=== PATIENT | female | born 1955 | race Caucasian/White ===

== ENCOUNTER 2024-07-29 21:17 | Inpatient (IN) | payer MEDICARE, SELFPAY ==
[2024-07-29] VITALS (13 sets, daily range): BP systolic 135–162; BP diastolic 66–89; BMI 29.1
[2024-07-29 15:18] LABS: % Basophils 0.2 % (0-2); % Immature Granulocytes 0.2 % (0-0.5); % Monocytes 7.2 % (1.7-9.3); % Neutrophils 86.4 % (42.2-75.2); Absolute Lymphocytes 0.8 10^3/uL (1.2-3.4); Absolute Neutrophils 11.5 10^3/uL (1.4-6.5); Hematocrit 51.4 % (37.0-47.0); Hemoglobin 17.4 g/dL (12.0-16.0); Mean Corp Hgb Conc. 33.9 g/dL (33.0-37.0); Mean Corpuscular Hgb 27.8 pg (27.0-31.0); Mean Corpuscular Volume 82.2 fL (81.0-99.0); Mean Platelet Volume 9.1 fL (7.4-10.4); Nucleated Red Blood Cells % 0 %; Platelet Count 340 10^3/uL (130-400); Red Blood Cell Count 6.25 10^6/uL (4.20-5.40); Red Cell Dist. Width 14.4 % (11.5-14.5); White Blood Cell Count 13.3 10^3/uL (4.8-10.8)
[2024-07-29 15:32] LABS: ALT (SGPT) 28 U/L (0-35); AST (SGOT) 25 U/L (14-36); Alkaline Phosphatase 111 U/L (38-126); Blood Urea Nitrogen 37 mg/dl (7-17); Calcium 10.8 mg/dl (8.4-10.2); Carbon Dioxide 19 mmol/L (22-30); Chloride 105 mmol/L (98-107); Glucose 156 mg/dl (70-99); Lipase 92 U/L (23-300); Potassium 4.6 mmol/L (3.5-5.1); Sodium 143 mmol/L (135-145); Total Bilirubin 0.9 mg/dl (0.2-1.3); Total Protein 7.8 g/dl (6.3-8.2); eGFR > 60.00
--- NOTE | 2024-07-29 17:15 | ED.GENMED ---
History of Present Illness
General
Chief Complaint: Abdominal Symptoms
Source: patient
Exam Limitations: none
Time Seen by Provider: 07/29/24 17:10
History of Present Illness
History of Present Illness:
See MDM
Past History
Past History
ED Past Medical History: None
ED Past Surgical History: None
Social History
Tobacco: Non-smoker
Alcohol: None
Phy Exam
Physical Exam
Physical Exam:
See MDM
Course
Orders/Labs/Results
Orders:
Orders
07/29/24 14:48
CMP [Comprehensive Metabolic Panel] Urgent
Complete Blood Count/With Diff Urgent
Lipase Urgent
07/29/24 17:14
CT Abd/pelvis W Iv Cont Urgent
Comment:
Reason For Exam: generalized abd pain, N/V
Abnormal Lab Results
07/29/24
14:48
WBC 13.3 H 10^3/uL
(4.8-10.8)
RBC 6.25 H 10^6/uL
(4.20-5.40)
Hgb 17.4 H g/dL
(12.0-16.0)
Hct 51.4 H %
(37.0-47.0)
Absolute Neuts (auto) 11.5 H 10^3/uL
(1.4-6.5)
Absolute Lymphs (auto) 0.8 L 10^3/uL
(1.2-3.4)
Absolute Monos (auto) 1.0 H 10^3/uL
(0.1-0.6)
Neutrophils % 86.4 H %
(42.2-75.2)
Lymphocytes % 6.0 L %
(20.5-51.1)
Carbon Dioxide 19 L mmol/L
(22-30)
BUN 37 H mg/dl
(7-17)
Glucose 156 H mg/dl
(70-99)
Calcium 10.8 H mg/dl
(8.4-10.2)
07/29/24 14:48
07/29/24 14:48
Vital Signs
Initial and Last Documented VS:
Initial Vital Signs
Temp Pulse Resp BP Pulse Ox
97.9 F 91 16 139/89 98
07/29/24 14:37 07/29/24 14:37 07/29/24 14:37 07/29/24 14:37 07/29/24 14:37
Last Documented Vital Signs
Temp Pulse Resp BP Pulse Ox
97.9 F 73 16 135/81 97
07/29/24 14:37 07/29/24 18:45 07/29/24 18:45 07/29/24 18:30 07/29/24 18:45
MDM/Problems Addressed
Differential Diagnosis Includes:
HPI and MDM Narrative:
69-year-old female presenting with nausea, vomiting and abdominal pain. Patient states she has been nauseous since Tuesday. She has been unable to keep any food down since then. She denies any recent sick contacts. Patient believes that she has
the 'stomach flu' but was concerned given duration of symptoms. I entered the room, blood work was already started and patient was placed on IV fluids. Patient states she is feeling somewhat better but still uncomfortable. Given the duration of
symptoms, will obtain CT abdomen/pelvis
Physical exam
General: Well appearing and non-toxic
HEENT: protecting airway. Dry mucous membranes
Neck: appears supple
CV: No evidence of cyanosis
Resp: No accessory muscle use
Abd: Non-distended. Vague abdominal tenderness without localized rebound
Extremities: No deformities
Neuro: alert
Psych: Normal affect
Skin: Intact
Problems Addressed including Acute and Chronic Conditions affecting care:
1. Abdominal pain with nausea and vomiting
Acuity: acute
Prognosis: stable
Details: Symptoms appear to be somewhat improved with fluids. Given duration of symptoms, will obtain CT abdomen/pelvis
2. [ ]
Acuity: acute
Prognosis: stable
Details:
3. [ ]
Acuity: acute
Prognosis: stable
Details:
4. [ ]
Acuity: acute
Prognosis: stable
Details:
5. [ ]
Acuity:
Prognosis:
Details:
Updates
7 PM radiology called indicating concern for partial small bowel obstruction which could be related to a small bowel mass or foreign body. Patient denies eating anything abnormal. Will admit for further workup
Differential Diagnosis (but not limited to): Gastroenteritis, gastritis, peptic ulcer disease, colitis
Testing considered: EKG but symptoms are nonexertional
Drug therapy (if applicable): OTC meds, please see d/c instruction regarding Rx drugs
Amount and/or Complexity of Data Reviewed
Clinical info obtained from: Patient
External data reviewed: N/A
Labs I independently reviewed (but not limited to): Mild leukocytosis, elevated BUN
Radiology: The CT scan was personally and independently reviewed. In addition, official CT report reviewed.
Pulse Ox: not hypoxic
EKG independently reviewed: N/A
Shank Archer: N/A
Critical Care: N/A
Risk of Complication:
Social Determinants of health: Good social support
Discussed with other providers: Radiologist, hospitalist
Escalation of Care includes Admit/Obs: Given the concern for partial small bowel obstruction and possible mass, will admit
Occasional wrong word or 'sound a like' substitutions may have occurred due to the inherent limitations of voice recognition software. Read the chart carefully and recognize, using context, where substitutions have occurred.
*Critical Care Note
Total Time (30-74mins, 75-104mins- exclusive of procedures): Not Applicable
ED Attending Note
-
Portions of this chart may have been created with voice recognition software.� Occasional wrong word or��sound alike� substitutions may have occurred due to the inherent limitations of voice recognition software.
Discharge Plan
Departure
Patient Disposition: Admit
Date of Disposition: 07/29/24
Time of Disposition: 19:13
Admit to: Med/Surg
Presentation/result/management discussed w/ accepting MD/DO: Hospitalist
Discharge Problem:
Partial small bowel obstruction
Referrals:
MCKENNA SALAMANCA [Other]
Interventions
Interventions:
*Risk Screen - Suicide Last Done: 07/29/24 16:40
*General Assessment Last Done: 07/29/24 16:40
*Neglect/Abuse Screening Last Done: 07/29/24 16:40
ED- Fall Risk Assessment Last Done: 07/29/24 16:40
UI-Jnpprk-Rzgdmawcyg Assessment Last Done: 07/29/24 16:40
Discharge Date and Time
Print Language: UPPER SORBIAN
--- NOTE | 2024-07-29 20:51 | HPS.HSE ---
Family Physician
-
Family Physician: MCKENNA SALAMANCA
Chief Complaint
-
Abd Pain, N/V
History of Present Illness
Patient is a 69y F with no significant PMH who presents to ED complaining of abdominal pain and N/V. Patient states that symptoms started on evening after Thanksgiving dinner. Patient reports recurrent N/V any time she tries to eat or
drink since that time. Pateint notes that her last BM was on Tuesday. She has not appreciated any flatus since that time, either. No fevers / chills. No chest pain, dyspnea. Patient denies any prior history of similar symptoms.
Medical History
Past Medical History
Past Medical History: Reports None
Past Surgical History: Reports Other
Additional Past Surgical History:
T&A
Social History
Tobacco: Non-smoker
Alcohol: Occasional
Drug: None
Personal:
Living: With Family
Family History
Family History: Other (GI Malignancies)
Allergies / Home Medications
Allergies reflects when Allergies were last updated in [email or web address].
Home Medications with original date entered in [email or web address]
Allergy/Medication List:
Allergies
Allergy/AdvReac Type Severity Reaction Status Date / Time
No Known Allergies Allergy Unverified 07/29/24 14:39
Home Medications
therapeutic multivitamin 1 tab PO DAILY 07/29/24
Review of Systems
-
History Source: Patient
A 12 point ROS was completed and negative except as noted: Yes
Constitutional: Denies Fever or Chills
Respiratory: Denies Cough or Trouble Breathing
Cardiac: Denies Chest Pain or Palpitations
Abdomen/GI: Reports Abdominal Pain, Nausea and Vomiting; Denies Diarrhea, Constipated, Bloody Stools, Black Stools or Anorexia
: Denies Dysuria or Frequency
Neurological: Denies Dizzy or Headache
Psych: Denies Depression or Anxiety
Physical Exam
Vital Signs
Vital Signs
Temp Pulse Resp BP Pulse Ox
97.9 F 74 30 156/68 99
07/29/24 14:37 07/29/24 20:15 07/29/24 20:15 07/29/24 20:00 07/29/24 20:15
Physical Exam
General: Other (69y F in mild distress due to pain.)
HEENT: Moist mucous membranes and PERRLA
Respiratory: Clear; No Wheezes, Rales or Rhonchi
Cardiac: S1/S2 and Regular Rhythm; No Murmur
GI: Soft, Non Distended, Normal Bowel Sounds and Other (Pos RUQ tenderness. No rebound / guarding. Bowel sounds are markedly diminished.)
Musculoskeletal: No Clubbing, No Cyanosis and No Edema
Neuro: AO x 3
Laboratory Results
-
07/29/24 14:48
07/29/24 14:48
Laboratory Results
Total Bilirubin 0.9 mg/dl (0.2-1.3) 07/29/24 14:48
AST 25 U/L (14-36) 07/29/24 14:48
ALT 28 U/L (0-35) 07/29/24 14:48
Alkaline Phosphatase 111 U/L (38-126) 07/29/24 14:48
Lipase 92 U/L (23-300) 07/29/24 14:48
Impression/Plan
-
A/P: Patient is a 69y F with no significant PMH who presents to ED complaining of 3-4 days of abdominal pain and N/V.
Gallstone Ileus / SBO
Possible Calculous Cholecystitis
- Admit for further evaluation and treatment.
- CT scan done in the ED shows gallstone in the small bowel with distal collapse / obstruction.
- NPO, IVF, supportive care including pain control and antiemetics.
- Surgery evaluation. Tentatively for OR in the AM.
- Follow for any worsening symptoms.
- Check abd US in the AM for evidence of cholecystitis.
- IV abx for now.
DVT Prophylaxis: SCDs
Code Status: Full
[2024-07-29] MEDS: DILAUDID 0.5 MG IV (21:12)
[2024-07-29] MEDS: ZOFRAN 4 MG IV (21:12)
[2024-07-29] MEDS: NSS 1000 IV (21:56)
[2024-07-29] MEDS: ZOSYN 50 IV (22:08)
--- NOTE | 2024-07-29 23:00 | PTCARENOTE ---
pt is aaox3, reports n/v at home. pt abd pain is a 0 - had pain meds in the emergency room. pt has cool wash clothes to help w/ the nausea. pt is oriented to room w/ call horner in reach.
[2024-07-30] VITALS (15 sets, daily range): BP systolic 85–161; BP diastolic 58–84
[2024-07-30] MEDS: DILAUDID 0.5 MG IV ×2 (00:46→04:44)
[2024-07-30] MEDS: ZOSYN 50 IV ×4 (03:09→21:58)
[2024-07-30] MEDS: ZOFRAN 4 MG IV (03:09)
[2024-07-30 05:22] LABS: Hematocrit 46.1 % (37.0-47.0); Hemoglobin 15.6 g/dL (12.0-16.0); Mean Corp Hgb Conc. 33.8 g/dL (33.0-37.0); Mean Corpuscular Hgb 28.5 pg (27.0-31.0); Mean Corpuscular Volume 84.1 fL (81.0-99.0); Mean Platelet Volume 8.7 fL (7.4-10.4); Platelet Count 325 10^3/uL (130-400); Red Blood Cell Count 5.48 10^6/uL (4.20-5.40); Red Cell Dist. Width 14.6 % (11.5-14.5); White Blood Cell Count 9.6 10^3/uL (4.8-10.8)
[2024-07-30 05:56] LABS: ALT (SGPT) 30 U/L (0-35); AST (SGOT) 30 U/L (14-36); Albumin 4.2 g/dl (3.5-5.0); Alkaline Phosphatase 80 U/L (38-126); Blood Urea Nitrogen 35 mg/dl (7-17); Calcium 9.8 mg/dl (8.4-10.2); Chloride 108 mmol/L (98-107); Direct Bilirubin 0.4 mg/dl (0.0-0.4); Estimated Creatinine Clearance 65 ml/min; Glucose 137 mg/dl (70-99); Potassium 3.8 mmol/L (3.5-5.1); Sodium 144 mmol/L (135-145); Total Bilirubin 1.2 mg/dl (0.2-1.3); Total Protein 6.6 g/dl (6.3-8.2); eGFR > 60.00
[2024-07-30 06:34] LABS: Carbon Dioxide 22 mmol/L (22-30)
--- NOTE | 2024-07-30 08:25 | W.PN.HOSP.TC ---
Today's Communication/Plan
-
Pain control. Surgery.
Assessment / Plan
Assessment / Plan
Physical exam:
General: Well Developed, Well Nourished and No Apparent Distress
HEENT: Normocephalic, Atraumatic and Moist Mucous Membranes
Respiratory: Clear to Auscultation; Negative Wheezes, Rales or Rhonchi
Cardiac: Regular Rhythm and S1/S2
GI: Soft, postop findings, midline incision C/D/I, nontender and Nondistended
Musculoskeletal: No Clubbing, No Cyanosis and No Edema
Neuro: Awake, Alert and Oriented
Psych: Calm
A/P:
Gallstone Ileus / SBO
Possible Calculous Cholecystitis
- Admit for further evaluation and treatment.
- CT scan done in the ED shows gallstone in the small bowel with distal collapse / obstruction.
- NPO, IVF, supportive care including pain control and antiemetics.
- Surgery evaluation. Patient status post OR today
- Follow postop care
- IV abx for now.
-Updated daughter at bedside today
DVT Prophylaxis: SCDs
Code Status: Full
Anticipated Discharge: 24 - 48 hours
Subjective/Interval History
-
Date of Service: July 30, 2024
Seen postop. No nausea or vomiting. No chest pain or shortness of breath.
Objective Data
-
Labs:
Laboratory Results
07/30/24
04:40
WBC 9.6
Hgb 15.6
Hct 46.1
Plt Count 325
Sodium 144
Potassium 3.8
Chloride 108 H
Carbon Dioxide 22
BUN 35 H
Creatinine 0.9
Glucose 137 H
Calcium 9.8
Total Bilirubin 1.2
AST 30
ALT 30
Alkaline Phosphatase 80
Vital Signs:
Vital Signs
Temp Pulse Resp BP Pulse Ox
97.5 F 68 18 161/79 97
07/30/24 07:30 07/30/24 07:30 07/30/24 07:30 07/30/24 07:30 07/30/24 07:30
I&O
07/29/24 07/30/24 07/31/24
06:59 06:59 06:59
Intake Total 900 / 900
Balance 900 / 900
--- NOTE | 2024-07-30 09:20 | CON.GS ---
Consultation
-
Date/Time Consultation Requested: 07/29/2024 9 PM
Date/Time Consultation Performed: 07/30/2024 8 AM
Requesting Provider: Hospitalist
Performing Provider: Dr. Meehan
Reason for Consultation: Small bowel obstruction
Medical History
-
Chief Complaint: Abdominal pain, nausea vomiting
History of Present Illness:
This is a 69-year-old female with no segment past medical or surgical history who presents to the ED with 3-day history of abdominal pain that began after Thanksgiving dinner. She reports recurrent nausea and bilious emesis since then. She states
that her last bowel movement was Tuesday and has not appreciated any flatus since that time either. The patient denies any history of known gallstones or biliary colic symptoms. The patient denies Fever, Chest Pain, Shortness Of Breath, Nausea,
Vomiting, changes in urinary and bowel habits, unintentional weight loss, jaundice, icterus, acolic stools.
Past Medical History
Past Medical History: None
Past Surgical History: None
Social History
Tobacco: Non-Smoker
Alcohol: None
Drug: None
Living: With Family
Employment: Not Employed
Family History
Family History: Reviewed & Not Pertinent
Allergies / Home Medications
Allergy/AdvReac Type Severity Reaction Status Date / Time
No Known Allergies Allergy Unverified 07/29/24 14:39
�Medication �Instructions �Recorded �Confirmed �Type
therapeutic multivitamin 1 tab PO DAILY 07/29/24 07/29/24 History
Review of Systems
-
All other systems: Negative unless noted
A 10 point review of systems was completed, and was negative except as per HPI.
Physical Exam
Vital Signs
Temp Pulse Resp BP Pulse Ox
97.5 F 68 18 161/79 97
07/30/24 07:30 07/30/24 07:30 07/30/24 07:30 07/30/24 07:30 07/30/24 07:30
07/29/24 07/30/24 07/31/24
06:59 06:59 06:59
Actual Weight 84.141 kg
Body Mass Index (BMI) 29.1
Lab Results
07/30/24 04:40
07/30/24 04:40
WBC 9.6 10^3/uL (4.8-10.8) 07/30/24 04:40
Hgb 15.6 g/dL (12.0-16.0) 07/30/24 04:40
Hct 46.1 % (37.0-47.0) 07/30/24 04:40
Plt Count 325 10^3/uL (130-400) 07/30/24 04:40
Abs Immat Gran (auto) 0.0 10^3/uL (0-0.05) 07/29/24 14:48
Neutrophils % 86.4 % (42.2-75.2) H 07/29/24 14:48
Physical Exam
General: Well Developed
HEENT: Normocephalic
GI: Soft, Non Tender and Distended
Data Reviewed
-
CT Scan: Image Personally Visualized and interpreted, Report Reviewed by me and Discussed with Patient
Labs: Labs Reviewed by me and Discussed with Patient
Total Time Spent with Patient (in minutes): 30
Assessment / Plan
-
This is a 69-year-old female who presents with 3-day history of abdominal abdominal pain, nausea and vomiting and found to have a small bowel obstruction secondary to what appears to be a gallstone in her mid small bowel with a corresponding
upstream small bowel dilation.
Will plan for a diagnostic lap possible small bowel resection in the OR today.
Will need an NG tube placed preoperatively.
X-ray ordered to confirm.
N.p.o., IV fluids, IV antibiotics ordered on-call to the OR.
Risks/Benefits/Alternatives, expected postoperative course and possible complications (bleeding, infection, injury to surrounding structures, acute/chronic pain) discussed at length. Patient wishes to proceed with surgery. All questions answered.
Consent obtained.
I spent 75 minutes in total for the care of this patient today including direct patient care and counseling, reviewing labs, imaging, coordination of care, as well as documentation.
[2024-07-30] MEDS: NSS 1000 IV (09:24)
[2024-07-30] MEDS: PROTONIX IV 40 MG IV (09:26)
[2024-07-30] MEDS: NSS (PRESERVATIVE FREE) 10 ML IV (09:26)
--- NOTE | 2024-07-30 11:01 | W.SUR.PREOP ---
Pre-Operative Surgical Note
-
I have examined this patient prior to the performance of the scheduled procedure.
The patient's condition is unchanged from the time of the current History and
Physical and the patient is able to undergo the scheduled procedure.
--- NOTE | 2024-07-30 13:00 | W.IMMPOSTOP ---
Surgical Immed Post Op Note
-
Primary Surgeon: Rd Meehan MD
Assisting Surgeon: None
Pre-op Diagnosis: Gallstone ileus
Post-op Diagnosis: Same
Procedure Performed:
1. Diagnostic laparoscopy
2. Open Enterotomy, removal of gallstone and primary enterotomy repair
Anesthesia Type: General
Specimen / Cultures: Gallstone
Estimated Blood Loss: 3 cc
Complications: None
Operative Findings: Open Beulah 12 balloon port. Two 5 mm ports in the left upper and lower quadrants. Ligament of Treitz identified and the bowel was run retrograde till we found the transition point. The 12 port was bowel is extracorporealized
and a longitudinal incision was made along the antimesenteric portion of the bowel and the gallstone was freed. The enterotomy was then closed in a transverse direction in 2 layers with 3-0 Vicryl interrupted sutures followed by 3-0 silk Lembert
interrupted sutures. After closure of the extraction site with 0 PDS, insufflation was reestablished and confirmed appropriate closure of our fascial repair.
POST OP PLAN:
Imaging: None
Labs: Routine AM
Diet n.p.o., IV fluids, continue NG tube to low intermittent wall suction
Analgesia: Scheduled Tylenol, as needed Toradol and Dilaudid
Neuro/vascular checks: q4h
AC/AP: Hold Therapeutic AC, Ok for DVT PPx
Activity: Ad Brandy
Wound/Incisions/Drains: Routine
Abx: Can continue antibiotics x 24 hours
Dispo: RNF, anticipate 3 to 5-day hospital stay pending return of bowel function.
--- NOTE | 2024-07-30 14:06 | OR.RPT ---
Operative Report
Operative Report
Patient Name: Katelyn Llanos
: 1955
Date of Operation: 07/30/2024
Preoperative Diagnosis: SBO, gallstone ileus
Postoperative Diagnosis: Same
Procedure(s):
1. Diagnostic Laparoscopy
2. Open enterotomy, removal of gallstone and primary enterotomy repair
Surgeon(s):
Dr. Meehan
Poultry Pinner(s):
RUMA Ureña
Anesthesia: General
Estimated Blood Loss: 3 cc
Urine Output: None
Drains/Lines/Implants: None
Specimens:
1. Gallstone
HPI/Surgical Indications:
This is a 69-year-old female with no significant past medical or surgical history who presents to our ED with a 3-day history of abdominal pain that began after Thanksgiving dinner, that was followed by nausea and vomiting. Workup in our emergency
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 Risks/Benefits/Alternatives were discussed at length, and the
patient agreed to proceed with surgery.
Operative Findings: Open Beulah 12 balloon port. Two 5 mm ports in the left upper and lower quadrants. Ligament of Treves identified and the bowel was run retrograde till we found the transition point. The 12 port was bowel is extra-corporealized
and a longitudinal incision was made along the antimesenteric portion of the bowel and the gallstone was freed. The enterotomy was then closed in a transverse direction in 2 layers with 3-0 Vicryl interrupted sutures followed by 3-0 silk Lembert
interrupted sutures. After closure of the extraction site with 0 PDS, insufflation was reestablished and confirmed appropriate closure of our fascial repair.
Procedure Description:
The patient was brought to the Operating Room and placed in the supine position with the arms out. IV antibiotics were infused and Venodyne stockings placed. General endotracheal anesthesia was induced. The patient had an NG tube that was already
placed preoperatively. The abdomen was prepped and draped in the usual sterile fashion. The abdomen was entered using a Beulah technique with a 12 mm trochar just below the umbilicus. Pneumoperitoneum to 15 mmHg pressure was obtained without
difficulty and we confirmed that no injury had occurred during our entry. We then placed two 5 mm trocars in the left upper and left lower quadrants. The bowel was then run from the ligament of Treves were decompressed bowel was readily identified
and run in a retrograde manner until we identified the dilated small bowel. The gallstone could be readily the seen and palpated at this transition point. A locking laparoscopic grasper was placed on the bowel and pneumoperitoneum was evacuated.
The Beulah trocar was removed and the incision was extended for about 6 cm. A small Chad wound retractor was then placed into the defect and the small bowel was extracorporealized. Blue towels were placed around the wound retractor to maintain a
field for contamination. The gallstone was fairly mobile and was milked back to a few centimeters from where it was stuck. Linear incision was made on the antimesenteric side of the bowel large enough to evacuate the gallstone which was placed in
a specimen cup and passed off the field. The enterotomy measured roughly 4 cm longitudinally, this was then closed in the transverse direction using interrupted 3-0 Vicryl sutures as her initial layer followed by 3-0 silk Lembert sutures. There
was a small serosal tear on the lateral aspect of the bowel here that was repaired with a 3-0 silk suture. The aperture of the small bowel appeared to be satisfactorily open and did not appeared narrow in any way. Some of the effluent proximal to
this was then milked through our enterotomy repair into the decompressed the small bowel to ensure that there was no leakage or bulging. We also ran the bowel proximally and distally for a few centimeters to ensure there is no other serosal
injuries or palpable stones. Satisfied the bowel was returned to the abdomen proper orientation and the wound retractor was removed as well as the surrounding towels. Gloves were exchanged. We then closed our fascial defect with 0 PDS running
suture anchored at each apex and tied together in the middle. The abdomen was then briefly reinsufflated to confirm our repair was intact and indeed airtight. We also confirmed that the bowel was well-positioned in its normal anatomic orientation
and placed some of the nearby omentum over the anastomosis. The abdomen was then desufflated and the 5 mm ports were removed. The midline incision was then closed with interrupted 3-0 Vicryl sutures while the 5 mm ports were closed with 4-0
Monocryl followed by Dermabond. Overall, the patient tolerated the procedure well and was taken to the Recovery Room postoperatively in stable condition.
I was the attending physician and performed the procedure with assistance from the BURNER TENDER above. I was present for all portions of the case
Rd Meehan MD
--- NOTE | 2024-07-30 14:15 | PTCARENOTE ---
Received patient from PACU. Patient drowsy, but easily arousable. Patient has no c/o pain. NGT to LIS, call horner in reach, daughters at bedside.
--- NOTE | 2024-07-30 15:08 | CM ---
Adm dx - Gallstone ileus/SBO
Met with pt and her daughter at bedside
Pt reports she lives with her at listed address, bi-level home; 10 steps to enter, 5 steps to bed/bath
Independent at baseline, driving
DME - none
SNF/HH - denies past hx
Has ride at discharge
PCP - Aline Cornejo
Pharm - [facility]
Discharge plan based on pts progress post op
Plan - TBD based on pt needs at time of discharge
--- NOTE | 2024-07-30 16:20 | PTCARENOTE ---
Patient OOb to bathroom with min assist. Patient voided without difficulty.
[2024-07-31] MEDS: NSS 1000 IV (00:25)
[2024-07-31] MEDS: ZOSYN 50 IV ×2 (03:46→09:09)
[2024-07-31 03:53] VITALS: BP 129/64
[2024-07-31 06:42] LABS: Hematocrit 39.9 % (37.0-47.0); Hemoglobin 13.1 g/dL (12.0-16.0); Mean Corp Hgb Conc. 32.8 g/dL (33.0-37.0); Mean Corpuscular Hgb 28.1 pg (27.0-31.0); Mean Corpuscular Volume 85.6 fL (81.0-99.0); Mean Platelet Volume 9.1 fL (7.4-10.4); Platelet Count 263 10^3/uL (130-400); Red Blood Cell Count 4.66 10^6/uL (4.20-5.40); Red Cell Dist. Width 14.6 % (11.5-14.5); White Blood Cell Count 4.8 10^3/uL (4.8-10.8)
[2024-07-31 07:15] LABS: Blood Urea Nitrogen 26 mg/dl (7-17); Calcium 8.9 mg/dl (8.4-10.2); Carbon Dioxide 22 mmol/L (22-30); Chloride 113 mmol/L (98-107); Estimated Creatinine Clearance 65 ml/min; Glucose 106 mg/dl (70-99); Potassium 3.4 mmol/L (3.5-5.1); Sodium 147 mmol/L (135-145); eGFR > 60.00
--- NOTE | 2024-07-31 07:45 | W.PN.HOSP.TC ---
Addendum entered and electronically signed by Sancho Szymanski MD 07/31/24 16:07:
Acute blood loss anemia
Hypernatremia
Original Note:
Today's Communication/Plan
-
IVF. Postop care
Assessment / Plan
Assessment / Plan
Physical exam:
General: Well Developed, Well Nourished and No Apparent Distress
HEENT: Normocephalic, Atraumatic and Dry Mucous Membranes
Respiratory: Clear to Auscultation; Negative Wheezes, Rales or Rhonchi
Cardiac: Regular Rhythm and S1/S2
GI: Soft, hypoactive bowel sounds, postop findings, midline incision C/D/I, mild tender and Nondistended
Musculoskeletal: No Clubbing, No Cyanosis and No Edema
Neuro: Awake, Alert and Oriented
Psych: Calm
A/P:
Small bowel obstruction due to gallstone ileus:
Status post laparoscopic assisted open enterotomy with removal of gallstones and primary enterotomy repair on 07/30
Continue n.p.o.
Continue IV fluids
Stop antibiotics
Pain control
IV PPI
Increase ambulation
Updated at bedside today
Leukocytosis:
Likely reactive
Hypernatremia:
Hypotonic IV fluids
Hypokalemia:
Replete and trend
Acute blood loss anemia and/or dilutional component:
Monitor hemoglobin closely
Hemoglobin 17.4--> 13.1
DVT Prophylaxis: SCDs
Code Status: Full
Anticipated Discharge: 24 - 48 hours
Subjective/Interval History
-
Date of Service: July 31, 2024
Patient has not passed any gas. She has not had any bowel movements. Some abdominal discomfort. No nausea or vomiting. Afebrile
Objective Data
-
Labs:
Laboratory Results
07/31/24
05:05
WBC 4.8
Hgb 13.1
Hct 39.9
Plt Count 263
Sodium 147 H
Potassium 3.4 L
Chloride 113 H
Carbon Dioxide 22
BUN 26 H
Creatinine 0.9
Glucose 106 H
Calcium 8.9
Vital Signs:
Vital Signs
Temp Pulse Resp BP Pulse Ox
98.5 F 62 16 129/64 95
07/31/24 03:53 07/31/24 03:53 07/31/24 03:53 07/31/24 03:53 07/31/24 03:53
I&O
07/30/24 07/31/24 08/01/24
06:59 06:59 06:59
Intake Total 900 / 900 1630 / 1630
Output Total 1200 / 1200
Balance 900 / 900 430 / 430
--- NOTE | 2024-07-31 08:00 | PN.CDI ---
CDI
- -
CDI:
Physician Documentation Request
Admit Date: 07/29/24 21:17
Dear Doctor Stephon,
Please review the following and provide your response in the progress notes.
Clinical Indicators:
Laboratory Tests
07/29/24 07/30/24 07/31/24
14:48 04:40 05:05
Sodium 143 144 147 H
Based on the above and your clinical assessment, please clarify in the progress notes, the appropriate diagnosis, if significant, that supports the above abnormalities and additional evaluation, monitoring and/or treatment rendered:
Hypernatremia
Abnormal lab value, clinically insignificant
Other(please specify)
Use of terms such as suspected, likely, concern for, or probable (associated with a specific diagnosis that is being evaluated, monitored, or treated as if it exists) are acceptable and can be coded in the inpatient setting, when documented at the
time of discharge.
Thank you,
Britany Dunham RN BSN CCDS
CDI Specialist
please contact via tiger text
Please use your independent medical judgment in providing your response.
--- NOTE | 2024-07-31 08:02 | PN.CDI ---
CDI
- -
CDI:
Physician Documentation Request
Admit Date: 07/29/24 21:17
Dear Doctor Stephon,
Please review the following and provide your response in the progress notes.
Clinical Indicators:
07/30 Procedure Performed:
1. Diagnostic laparoscopy
2. Open Enterotomy, removal of gallstone and primary enterotomy repair
Estimated Blood Loss: 3 cc
Laboratory Tests
07/29/24 07/30/24 07/31/24
14:48 04:40 05:05
Hgb 17.4 H 15.6 13.1
Based on the above and your clinical assessment, please clarify in the progress notes, the appropriate diagnosis, if significant, that supports the above abnormalities and additional evaluation, monitoring and/or treatment rendered:
Acute blood loss anemia
Abnormal lab value, clinically insignificant
Other(please specify)
Use of terms such as suspected, likely, concern for, or probable (associated with a specific diagnosis that is being evaluated, monitored, or treated as if it exists) are acceptable and can be coded in the inpatient setting, when documented at the
time of discharge.
Thank you,
Britany Dunham RN BSN CCDS
CDI Specialist
please contact via tiger text
Please use your independent medical judgment in providing your response.
[2024-07-31 08:06] VITALS: BP 119/58
[2024-07-31] MEDS: KCL 260 MEQ IV (08:50)
[2024-07-31] MEDS: 0.45% NACL with KCL 20 MEQ 1000 IV (08:51)
[2024-07-31] MEDS: NSS IV (08:53)
--- NOTE | 2024-07-31 09:03 | W.PN.GS2 ---
Today's Communication / Plan
-
Continue n.p.o., IV fluids, NG tube to low intermittent wall suction.
No activity restrictions, okay to shower. Out of bed and ambulate as able.
PT OT if necessary.
Awaiting return of bowel function.
General surgery will continue to follow.
Assessment / Plan
-
This is a 69-year-old female who presented with a small bowel obstruction secondary to gallstone ileus's postoperative day 1 laparoscopic assisted open enterotomy with removal of gallstone and primary enterotomy repair. Doing well, expected
postoperative course.
Continue n.p.o., IV fluids, NG tube to low intermittent wall suction.
No activity restrictions, okay to shower. Out of bed and ambulate as able.
PT OT if necessary.
Awaiting return of bowel function.
General surgery will continue to follow.
Time Spent
Total Time Spent with Patient (in minutes): 25
Subjective Data
-
Date of Service: July 31, 2024
Interval Events:
No acute events overnight. Slept well. Pain Controlled. Denies Nausea/Vomiting, -bowel function.
Objective Data
-
Intake and Output
07/30/24 07/31/24 08/01/24
06:59 06:59 06:59
Intake Total 900 / 900 1630 / 1630
Output Total 1200 / 1200
Balance 900 / 900 430 / 430
Intake:
Oral fluids 100 / 100
IV fluids (Total) 800 / 800 1250 / 1250
Normosal 150 / 150
IV piggybacks 100 / 100 100 / 100
Amount instilled into GI Tube ( 180 / 180
Total)
[place] Sump 180 / 180
Output:
Gastrointestinal tube output ( 1200 / 1200
Total)
[place] Sump 1200 / 1200
Other:
Number of approximated MODERATE 1
amounts of urine
Number of approximated LARGE 2 1
amounts of urine
Vital Signs
Temp Pulse Resp BP Pulse Ox
98.2 F 60 17 119/58 95
07/31/24 08:06 07/31/24 08:06 07/31/24 08:06 07/31/24 08:06 07/31/24 08:06
Lab Results
07/31/24 05:05
07/31/24 05:05
Calcium 8.9 mg/dl (8.4-10.2) 07/31/24 05:05
Total Bilirubin 1.2 mg/dl (0.2-1.3) 07/30/24 04:40
Direct Bilirubin 0.4 mg/dl (0.0-0.4) 07/30/24 04:40
AST 30 U/L (14-36) 07/30/24 04:40
ALT 30 U/L (0-35) 07/30/24 04:40
Alkaline Phosphatase 80 U/L (38-126) 07/30/24 04:40
Total Protein 6.6 g/dl (6.3-8.2) 07/30/24 04:40
Albumin 4.2 g/dl (3.5-5.0) 07/30/24 04:40
Physical Exam
-
GENERAL/NEURO: Awake, Alert, no distress
CHEST: Unlabored breathing on RA
ABDOMEN: Soft, Non-Tender, Non-Distended, incisions clean dry and intact. NG tube with thin bilious output.
[2024-07-31] MEDS: PROTONIX IV 40 MG IV (09:08)
[2024-07-31] MEDS: NSS (PRESERVATIVE FREE) 10 ML IV (09:09)
[2024-07-31 11:00] VITALS: BP 153/61
--- NOTE | 2024-07-31 12:27 | CM ---
Chart reviewed. Met with pt at bedside
Pt is NPO. Receiving IVF's
NGT to low intermittent wall suction
Encouraged to ambulate
CM remains available for discharge needs
Plan - anticipate home no needs when medically ready
--- NOTE | 2024-07-31 14:46 | PTCARENOTE ---
Patient ambulating in halls multiple times today with a steady gait. Patient has no c/o pain. Bowel sounds are present.Patient remains NPO.
[2024-07-31 15:00] VITALS: BP 127/63
[2024-08-01] VITALS: BP 151/71
[2024-08-01] MEDS: 0.45% NACL with KCL 20 MEQ 1000 IV ×2 (02:40→17:59)
[2024-08-01 05:57] LABS: % Basophils 0.3 % (0-2); % Eosinophils 1.8 % (0-6); % Immature Granulocytes 0.4 % (0-0.5); % Lymphocytes 22.3 % (20.5-51.1); % Monocytes 10.4 % (1.7-9.3); % Neutrophils 64.8 % (42.2-75.2); Absolute Eosinophils 0.1 10^3/uL (0-0.7); Absolute Lymphocytes 1.5 10^3/uL (1.2-3.4); Absolute Monocytes 0.7 10^3/uL (0.1-0.6); Absolute Neutrophils 4.4 10^3/uL (1.4-6.5); Hematocrit 37.6 % (37.0-47.0); Hemoglobin 12.6 g/dL (12.0-16.0); Mean Corp Hgb Conc. 33.5 g/dL (33.0-37.0); Mean Corpuscular Hgb 28.8 pg (27.0-31.0); Mean Corpuscular Volume 85.8 fL (81.0-99.0); Mean Platelet Volume 9.3 fL (7.4-10.4); Nucleated Red Blood Cells % 0 %; Platelet Count 229 10^3/uL (130-400); Red Blood Cell Count 4.38 10^6/uL (4.20-5.40); Red Cell Dist. Width 14.5 % (11.5-14.5); White Blood Cell Count 6.8 10^3/uL (4.8-10.8)
[2024-08-01 06:30] LABS: Blood Urea Nitrogen 25 mg/dl (7-17); Calcium 9.1 mg/dl (8.4-10.2); Carbon Dioxide 21 mmol/L (22-30); Chloride 114 mmol/L (98-107); Estimated Creatinine Clearance 83 ml/min; Glucose 78 mg/dl (70-99); Potassium 3.8 mmol/L (3.5-5.1); Sodium 146 mmol/L (135-145); eGFR > 60.00
[2024-08-01 06:59] VITALS: BP 163/73
--- NOTE | 2024-08-01 07:42 | PTCARENOTE ---
pt reports flatulence
[2024-08-01] MEDS: NSS (PRESERVATIVE FREE) 10 ML IV (07:50)
[2024-08-01] MEDS: PROTONIX IV 40 MG IV (07:50)
--- NOTE | 2024-08-01 08:38 | W.PN.HOSP.TC ---
Today's Communication/Plan
-
N.p.o. NG tube IV fluids.
Assessment / Plan
Assessment / Plan
Physical exam:
General: Well Developed, Well Nourished and No Apparent Distress
HEENT: Normocephalic, Atraumatic and Dry Mucous Membranes
Respiratory: Clear to Auscultation; Negative Wheezes, Rales or Rhonchi
Cardiac: Regular Rhythm and S1/S2
GI: Soft, improving bowel sounds, postop findings, midline incision C/D/I, mild tender and Nondistended
Musculoskeletal: No Clubbing, No Cyanosis and No Edema
Neuro: Awake, Alert and Oriented
Psych: Calm
A/P:
Small bowel obstruction due to gallstone ileus:
Status post laparoscopic assisted open enterotomy with removal of gallstones and primary enterotomy repair on 07/30
Continue n.p.o.
NG tube in place and defer to surgery when to remove
Continue IV fluids
Off antibiotics
Pain control
IV PPI
Increase ambulation--> PT OT eval
Updated family prior
Leukocytosis:
Likely reactive and back to normal
Hypernatremia:
Continue hypotonic IV fluids
Hypokalemia:
Repleted and trend
Probable acute blood loss anemia and/or dilutional component:
Monitor hemoglobin closely
Hemoglobin 17.4--> 12.6
DVT Prophylaxis: SCDs
Code Status: Full
Anticipated Discharge: 24 - 48 hours
Subjective/Interval History
-
Date of Service: August 01, 2024
Patient is passing gases today. Still NG tube in place. No chest pain or shortness of breath.
Objective Data
-
Labs:
Laboratory Results
08/01/24
04:44
WBC 6.8
Hgb 12.6
Hct 37.6
Plt Count 229
Sodium 146 H
Potassium 3.8
Chloride 114 H
Carbon Dioxide 21 L
BUN 25 H
Creatinine 0.7
Glucose 78
Calcium 9.1
Vital Signs:
Vital Signs
Temp Pulse Resp BP Pulse Ox
98.1 F 64 18 163/73 97
08/01/24 06:59 08/01/24 06:59 08/01/24 06:59 08/01/24 06:59 08/01/24 06:59
I&O
07/31/24 08/01/24 08/02/24
06:59 06:59 06:59
Intake Total 1630 / 1630 1230 / 1230
Output Total 1200 / 1200 600 / 600
Balance 430 / 430 630 / 630
[2024-08-01 12:51] VITALS: BMI 29.1
--- NOTE | 2024-08-01 13:52 | W.PN.GS2 ---
Today's Communication / Plan
-
Clamp trial
Assessment / Plan
-
This is a 69-year-old female who presented with a small bowel obstruction secondary to gallstone ileus's postoperative day 2 laparoscopic assisted open enterotomy with removal of gallstone and primary enterotomy repair. Doing well, signs of
returning bowel function with flatus
Clamp trial
If passes, CLD this lianna
No activity restrictions, okay to shower.
Out of bed and ambulate as able.
All other care as per primary team
General surgery will continue to follow
Subjective Data
-
Date of Service: August 01, 2024
AFVSS, OOBTC, denies n/v with NGT to suction, passing flatus, pain controlled
Objective Data
-
Intake and Output
07/31/24 08/01/24 08/02/24
06:59 06:59 06:59
Intake Total 1630 / 1630 1230 / 1230
Output Total 1200 / 1200 600 / 600
Balance 430 / 430 630 / 630
Intake:
Oral fluids 100 / 100
IV fluids (Total) 1250 / 1250 1020 / 1020
Normosal 150 / 150
IV piggybacks 100 / 100
Amount instilled into GI Tube ( 180 / 180 210 / 210
Total)
[place] Sump 180 / 180 210 / 210
Output:
Gastrointestinal tube output ( 1200 / 1200 600 / 600
Total)
[place] Sump 1200 / 1200 600 / 600
Other:
Number of approximated MODERATE 1
amounts of urine
Number of approximated LARGE 1 3
amounts of urine
Vital Signs
Temp Pulse Resp BP Pulse Ox
98.1 F 64 18 163/73 97
08/01/24 06:59 08/01/24 06:59 08/01/24 06:59 08/01/24 06:59 08/01/24 06:59
Lab Results
08/01/24 04:44
08/01/24 04:44
Calcium 9.1 mg/dl (8.4-10.2) 08/01/24 04:44
Total Bilirubin 1.2 mg/dl (0.2-1.3) 07/30/24 04:40
Direct Bilirubin 0.4 mg/dl (0.0-0.4) 07/30/24 04:40
AST 30 U/L (14-36) 07/30/24 04:40
ALT 30 U/L (0-35) 07/30/24 04:40
Alkaline Phosphatase 80 U/L (38-126) 07/30/24 04:40
Total Protein 6.6 g/dl (6.3-8.2) 07/30/24 04:40
Albumin 4.2 g/dl (3.5-5.0) 07/30/24 04:40
Physical Exam
-
Gen: NAD
Abd: soft, approp ttp, incisions cdi, nd
--- NOTE | 2024-08-01 14:52 | CM ---
Chart reviewed. Met with pt at bedside
Clamp trial - NGT - if tolerated clear liquids in PM
Ambulating in [place]
Plan - anticipate home no needs when medically stable
--- NOTE | 2024-08-01 18:45 | PTCARENOTE ---
ngt removed at 1800. pt started clears will monitor.
[2024-08-01 23:23] VITALS: BP 145/73
[2024-08-02 06:36] LABS: Hematocrit 37.9 % (37.0-47.0); Hemoglobin 12.7 g/dL (12.0-16.0); Mean Corp Hgb Conc. 33.5 g/dL (33.0-37.0); Mean Corpuscular Hgb 28.7 pg (27.0-31.0); Mean Corpuscular Volume 85.7 fL (81.0-99.0); Mean Platelet Volume 9.7 fL (7.4-10.4); Platelet Count 248 10^3/uL (130-400); Red Blood Cell Count 4.42 10^6/uL (4.20-5.40); Red Cell Dist. Width 13.8 % (11.5-14.5); White Blood Cell Count 8.7 10^3/uL (4.8-10.8)
[2024-08-02 07:18] LABS: Blood Urea Nitrogen 18 mg/dl (7-17); Calcium 8.8 mg/dl (8.4-10.2); Carbon Dioxide 18 mmol/L (22-30); Chloride 108 mmol/L (98-107); Estimated Creatinine Clearance 97 ml/min; Glucose 54 mg/dl (70-99); Sodium 139 mmol/L (135-145); eGFR > 60.00
[2024-08-02 07:36] VITALS: BP 160/78
[2024-08-02 07:54] LABS: Glucose - Point of Care 78 mg/dl (70-99)
[2024-08-02] MEDS: NSS (PRESERVATIVE FREE) 10 ML IV (08:14)
[2024-08-02] MEDS: PROTONIX IV 40 MG IV (08:15)
--- NOTE | 2024-08-02 08:55 | W.PN.HOSP.TC ---
Today's Communication/Plan
-
Postop care
Assessment / Plan
Assessment / Plan
Physical exam:
General: Well Developed, Well Nourished and No Apparent Distress
HEENT: Normocephalic, Atraumatic and Dry Mucous Membranes
Respiratory: Clear to Auscultation; Negative Wheezes, Rales or Rhonchi
Cardiac: Regular Rhythm and S1/S2
GI: Soft, normal bowel sounds, postop findings, midline incision C/D/I, mild tender and mildly distended
Musculoskeletal: No Clubbing, No Cyanosis and No Edema
Neuro: Awake, Alert and Oriented
Psych: Calm
A/P:
Small bowel obstruction due to gallstone ileus:
Status post laparoscopic assisted open enterotomy with removal of gallstones and primary enterotomy repair on 07/30
NG tube is out
Off IV fluids and antibiotics
PT OT
Diet advanced to full liquid diet today by surgery
Updated family prior
Leukocytosis:
Likely reactive and back to normal
Hypernatremia:
Resolved
Hypokalemia:
Repleted and trend
Probable acute blood loss anemia and/or dilutional component:
Monitor hemoglobin closely
Hemoglobin 17.4--> 12.7
DVT Prophylaxis: SCDs
Code Status: Full
Anticipated Discharge: Within 24 hours
Subjective/Interval History
-
Date of Service: August 02, 2024
Patient doing much better today. No nausea or vomiting.
Objective Data
-
Labs:
Laboratory Results
08/02/24
04:22
WBC 8.7
Hgb 12.7
Hct 37.9
Plt Count 248
Sodium 139
Potassium 4.0
Chloride 108 H
Carbon Dioxide 18 L
BUN 18 H
Creatinine 0.6
Glucose 54 L*
Calcium 8.8
Vital Signs:
Vital Signs
Temp Pulse Resp BP Pulse Ox
98.1 F 62 16 160/78 97
08/02/24 07:36 08/02/24 07:36 08/02/24 07:36 08/02/24 07:36 08/02/24 07:36
I&O
08/01/24 08/02/24 08/03/24
06:59 06:59 06:59
Intake Total 1230 / 1230 1500 / 1500
Output Total 600 / 600
Balance 630 / 630 1500 / 1500
--- NOTE | 2024-08-02 11:24 | PTOTSP ---
Patient no longer has her NG tube and is ambulating in the hallway independently. Encouraged continued ambulation while hospitalized to help encourage bowel function. PT no longer warranted at this time, will sign off.
--- NOTE | 2024-08-02 12:11 | W.PN.GS2 ---
Today's Communication / Plan
-
Advance to full liquid diet.
Dispo planning
Assessment / Plan
-
This is a 69-year-old female who presented with an SBO s/t gallstone ileus. POD#3 laparoscopic assisted open enterotomy with removal of gallstone and primary enterotomy repair. Doing well, signs of returning bowel function with flatus
Will advance to a full liquid diet, plan for low residue diet tomorrow.
No activity restrictions, okay to shower.
Out of bed and ambulate as able.
All other care as per primary team
Anticipate discharge home tomorrow.
General surgery will continue to follow
Time Spent
Total Time Spent with Patient (in minutes): 20
Subjective Data
-
Date of Service: August 02, 2024
Interval Events:
No acute events overnight. Slept well. Pain Controlled. Denies Nausea/Vomiting, +bowel function. Tolerating diet.
Objective Data
-
Intake and Output
08/01/24 08/02/24 08/03/24
06:59 06:59 06:59
Intake Total 1230 / 1230 1500 / 1500
Output Total 600 / 600
Balance 630 / 630 1500 / 1500
Intake:
Oral fluids 480 / 480
IV fluids (Total) 1020 / 1020 1020 / 1020
Amount instilled into GI Tube ( 210 / 210
Total)
[place] Sump 210 / 210
Output:
Gastrointestinal tube output ( 600 / 600
Total)
[place] Sump 600 / 600
Other:
Number of approximated LARGE 3 1
amounts of urine
Vital Signs
Temp Pulse Resp BP Pulse Ox
98.1 F 62 16 160/78 97
08/02/24 07:36 08/02/24 07:36 08/02/24 07:36 08/02/24 07:36 08/02/24 08:00
Lab Results
08/02/24 04:22
08/02/24 04:22
Calcium 8.8 mg/dl (8.4-10.2) 08/02/24 04:22
Total Bilirubin 1.2 mg/dl (0.2-1.3) 07/30/24 04:40
Direct Bilirubin 0.4 mg/dl (0.0-0.4) 07/30/24 04:40
AST 30 U/L (14-36) 07/30/24 04:40
ALT 30 U/L (0-35) 07/30/24 04:40
Alkaline Phosphatase 80 U/L (38-126) 07/30/24 04:40
Total Protein 6.6 g/dl (6.3-8.2) 07/30/24 04:40
Albumin 4.2 g/dl (3.5-5.0) 07/30/24 04:40
Physical Exam
-
GENERAL/NEURO: Awake, Alert, no distress
CHEST: Unlabored breathing on RA
ABDOMEN: Soft, Non-Tender, still mildly distended.
[2024-08-02 16:02] VITALS: BP 156/71
[2024-08-02 23:36] VITALS: BP 162/74
--- NOTE | 2024-08-03 00:44 | PTCARENOTE ---
Pt ambulatory to bathroom, pt moving bowels, Loose BM x2. Pt denies any complaints. Assessment as documented. tolerating Full liq diet. Will continue to monitor.
[2024-08-03 05:20] LABS: Hematocrit 41.3 % (37.0-47.0)
[2024-08-03 05:46] LABS: Blood Urea Nitrogen 16 mg/dl (7-17); Carbon Dioxide 21 mmol/L (22-30); Chloride 105 mmol/L (98-107); Estimated Creatinine Clearance 97 ml/min; Glucose 95 mg/dl (70-99); Potassium 3.7 mmol/L (3.5-5.1); Sodium 138 mmol/L (135-145); eGFR > 60.00
--- NOTE | 2024-08-03 06:23 | PTCARENOTE ---
Pt awake t/o the night. Pt with loose stools x3, one episode of inc. Pt reports feeling a little weak due to frequent bathroom use. Denies dizziness/ lightheadedness. Po intake encouraged. Vital signs stable. NO other changes in assessment noted at
this time. Will continue to monitor.
[2024-08-03 08:00] VITALS: BP 129/59
[2024-08-03] MEDS: NSS (PRESERVATIVE FREE) 10 ML IV (08:56)
[2024-08-03] MEDS: PROTONIX IV 40 MG IV (08:56)
--- NOTE | 2024-08-03 09:04 | W.PN.HOSP.TC ---
Today's Communication/Plan
-
Discharge planning today
Assessment / Plan
Assessment / Plan
Physical exam:
General: Well Developed, Well Nourished and No Apparent Distress
HEENT: Normocephalic, Atraumatic and Dry Mucous Membranes
Respiratory: Clear to Auscultation; Negative Wheezes, Rales or Rhonchi
Cardiac: Regular Rhythm and S1/S2
GI: Soft, normal bowel sounds, postop findings, midline incision C/D/I, mild tender and mildly distended
Musculoskeletal: No Clubbing, No Cyanosis and No Edema
Neuro: Awake, Alert and Oriented
Psych: Calm
A/P:
Small bowel obstruction due to gallstone ileus:
Status post laparoscopic assisted open enterotomy with removal of gallstones and primary enterotomy repair on 07/30
NG tube is out
Off IV fluids and antibiotics
PT OT
Diet advanced per surgery
Surgery cleared for discharge later today
Updated family prior
Leukocytosis:
Likely reactive and back to normal
Hypernatremia:
Resolved
Hypokalemia:
Repleted and trend
Probable acute blood loss anemia and/or dilutional component:
Monitor hemoglobin closely
Hemoglobin 17.4--> 14
DVT Prophylaxis: SCDs
Code Status: Full
Anticipated Discharge: Today
Subjective/Interval History
-
Date of Service: August 03, 2024
No new complaints
Objective Data
-
Labs:
Laboratory Results
08/03/24
04:27
Hgb 14.0
Hct 41.3
Sodium 138
Potassium 3.7
Chloride 105
Carbon Dioxide 21 L
BUN 16
Creatinine 0.6
Glucose 95
Calcium 9.0
Vital Signs:
Vital Signs
Temp Pulse Resp BP Pulse Ox
97.6 F 75 18 129/59 96
08/03/24 08:00 08/03/24 08:00 08/03/24 08:00 08/03/24 08:00 08/03/24 08:00
I&O
08/02/24 08/03/24 08/04/24
06:59 06:59 06:59
Intake Total 1500 / 1500 2140 / 2140
Balance 1500 / 1500 2140 / 2140
--- NOTE | 2024-08-03 10:20 | W.PN.GS2 ---
Addendum entered and electronically signed by Will Zhao MD 08/03/24 11:49:
I saw and examined the patient.
The Library Attendant's note was reviewed and I agree with the note.
Comment: Continues to improve. Pain controlled. Kevin cld. Passing BMs. Exam benign. ADAT and DC home when kevin LRD. She has good home support, lives with her daughter.
Original Note:
Today's Communication / Plan
-
Advance diet
dispo planning
Assessment / Plan
-
This is a 69-year-old female who presented with an SBO s/t gallstone ileus. POD#4 laparoscopic assisted open enterotomy with removal of gallstone and primary enterotomy repair.
Doing well, signs of returning bowel function with flatus and BM's, tolerating FLD
AFVSS
Labs stable
Plan:
Will advance to a low residue diet
Change analgesics to PO
Out of bed and ambulate as able/ok to shower
All other care as per primary team, clear for discharge from surgical standpoint later today if tolerating diet
Subjective Data
-
Date of Service: August 03, 2024
Patient seen and examined at bedside with Dr. Zhao. Denies n/v. Tolerating diet. Does feel quite tired and easily fatigues. Passed 3 bm's overnight; liquid mixed with solid
Objective Data
-
Intake and Output
08/02/24 08/03/24 08/04/24
06:59 06:59 06:59
Intake Total 1500 / 1500 2139
Balance 1500 / 1500 2139
Intake:
Oral fluids 480 / 480 2139
IV fluids (Total) 1020 / 1020
Other:
Number of approximated MODERATE 2
amounts of urine
Number of approximated LARGE 1
amounts of urine
Number of unmeasured liquid
stools
Rectum 2
Vital Signs
Temp Pulse Resp BP Pulse Ox
97.6 F 75 18 129/59 96
08/03/24 08:00 08/03/24 08:00 08/03/24 08:00 08/03/24 08:00 08/03/24 08:00
Lab Results
08/03/24 04:27
08/03/24 04:27
Calcium 9.0 mg/dl (8.4-10.2) 08/03/24 04:27
Total Bilirubin 1.2 mg/dl (0.2-1.3) 07/30/24 04:40
Direct Bilirubin 0.4 mg/dl (0.0-0.4) 07/30/24 04:40
AST 30 U/L (14-36) 07/30/24 04:40
ALT 30 U/L (0-35) 07/30/24 04:40
Alkaline Phosphatase 80 U/L (38-126) 07/30/24 04:40
Total Protein 6.6 g/dl (6.3-8.2) 07/30/24 04:40
Albumin 4.2 g/dl (3.5-5.0) 07/30/24 04:40
Physical Exam
-
GENERAL/NEURO: Awake, Alert, no distress
CHEST: Unlabored breathing on RA
ABDOMEN: Soft, Non-Tender, Non-distended. Incisions without erythema, intact glue
--- NOTE | 2024-08-03 11:40 | W.DCSUMMARY ---
Discharge Summary
Discharge Data
Date of Admission: 07/29/24
Date of Discharge: 08/03/24
-
Pending Results: No
Hospital Course
Patient 69 years old female with no significant past medical history came into the hospital abdominal pain and found to have small bowel obstruction due to gallstone ileus. She was kept n.p.o. and IV fluids. Surgery was consulted. She underwent
surgery on 07/30 and she had diagnostic laparoscopy, open enterotomy, removal of gallstones and primary enterotomy repair. Patient had her usual postop course and she did well. She was able to tolerate oral intake. She has been ambulating without
any problems. Surgery cleared her for discharge today. She was discharged in stable condition today.
Discharge duration: 35 minutes
Discharge Plan
-
Patient Disposition: Home (Routine Discharge)
Discharge Diagnosis/Procedures: Small obstruction due to gallstone ileus status post diagnostic laparoscopy with open enterotomy for removal of gallstone. Hypernatremia resolved. Hypokalemia-resolved. Reactive leukocytosis resolved. Probable
acute blood loss anemia.
Diet: Low Fiber
Activity: As tolerated and No strenuous activity
Additional Activity: Do not lift over 15lbs
Bathing Restrictions: OK to Shower
Blood Work: Please PCP to order CBC, BMP within 1 week
Activity Restrictions/Additional Instructions:
Instructions following diagnostic laparoscopy with open enterotomy
Please call [phone] if you have any questions or concerns after your surgery.
Wound Care:
Your incisions are covered with skin glue which will come off on it�s own in 5-10 days.
It is ok to shower the day after your surgery. Do not scrub the incisions, let soap and water wash over them and pat dry.
� Bruising around your incisions is normal.
� Using ice packs will help minimize this swelling.
� No swimming or soaking incisions for 1 week.
� Your stitches will dissolve and do not need to be removed.
Activity:
No heavy lifting more than 15 pounds for the next 4-6 weeks, then you may gradually lift heavier objects as tolerated by discomfort. Otherwise activity as tolerated by your comfort level.
Pain Management:
Use Tylenol, ibuprofen and ice packs to treat your pain.
� You may take 650 milligrams of Tylenol (Max 3 grams per day) every 6 hours, and 600 mg of ibuprofen also every 6 hours. (you can alternate them every 3 hours)
� You may use an ice pack to your incision as needed.
� If you still have pain not controlled by these measures, take your prescription pain medication as prescribed.
Medications:
You may resume your home medications.
Bowel Medications:
Prescription pain medication can make you constipated. If you take this medication, also take colace 100 mg twice daily (this is over the counter). If this is not sufficient, you may take Miralax (polyethylene glycol) to help move your bowels.
Diet:
After your procedure, limit the amount of fiber you eat until your bowel function returns to normal. Meals high in fiber may cause worsening bloating and discomfort.
Driving restrictions:
No driving if you are taking prescription pain medication or if you think your normal reaction time and attentiveness has been slowed by your surgery.
Things to Look out for:
Worsening Abdominal pain, redness or drainage from incision
Call Doctor for:
Please call if you notice worsening redness or drainage from incision(s) lasting longer than 5 days after your surgery, any foul-smelling drainage from the incision, pain not controlled by pain medications, persistent nausea and vomiting, or for any
fevers greater than 101.3 F. The number for questions/concerns is [phone]
Follow-up:
Follow-up appointment will be scheduled with your surgeon in 3-4 weeks. Please call prior to your appointment if you have any questions or concerns. [phone]
Referrals:
Primary care, provider [Other] (See less than 1 week)
Rd Meehan MD [Active] - in two to three weeks
Prescriptions:
New
acetaminophen 325 mg Tablet
650 mg PO Q4HPRN PRN (Reason: Mild Pain / Temp > 101) 15 Days Qty: 0 0RF
oxycodone 5 mg Tablet
5 mg PO Q4HPRN PRN (Reason: severe pain) Qty: 10 0RF
docusate sodium [Colace] 100 mg capsule
100 mg PO DAILY Qty: 10 0RF
Continued
therapeutic multivitamin Tablet
1 tab PO DAILY
Discharge Orders:
Discharge Patient (As Directed); Ordered 08/03/24
Ordered By: Sancho Szymanski
Discharge Date and Time
Discharge Date/Time: 08/03/24 14:17
Print Language: CROATIAN
[2024-08-03 12:00] VITALS: BP 135/89
--- NOTE | 2024-08-03 12:21 | CM ---
Pt for discharge today if tolerates LRD
Pt reports daughter will transport home
Discussed IMM - given copy
Plan - anticipate home no needs
== END 2024-08-03 14:17 | disposition home or self-care (01) | DRG 330 ==
LOC: 2 SOUTH 21:17
PROVIDERS: Emergency Medicine; Registered Nurse; ADMITTING PHYSICIAN Hospitalist; ATTENDING PHYSICIAN Hospitalist; EMERGENCY PHYSICIAN Student in an Organized Health Care Education/Training Program; OTHER PHYSICIAN Surgery
PROC: 0DQ84ZZ Repair Small Intestine, Percutaneous Endoscopic Approach (ICD-10-PCS; 2024-07-30)
PROC: 0WC Anatomical Regions, General, Extirpation (ICD-10-PCS; 2024-07-30)
DX: K56.3 Gallstone ileus (principal); D62 Acute posthemorrhagic anemia; E87.0 Hyperosmolality and hypernatremia; K80.10 Calculus of gallbladder with chronic cholecystitis without obstruction; K56.600 Partial intestinal obstruction, unspecified as to cause; E87.6 Hypokalemia
CPT/HCPCS: 88300; 71045; 74177; 80048; 80053; 82248; 82962; 83690; 85014; 85018; 85025; 85027; 97161; 97166; 99285; J3480; Q9967

== ENCOUNTER 2024-09-20 06:15 | Day surgery (SDC) | payer MEDICARE, SELFPAY ==
[2024-09-20 12:54] VITALS: BMI 34.0
[2024-09-20 13:01] VITALS: BMI 34.0
[2024-09-20 13:08] VITALS: BP 181/78
[2024-09-20 16:18] VITALS: BP 142/74; BP 181/78
[2024-09-20 16:30] VITALS: BP 153/68
[2024-09-20 16:45] VITALS: BP 143/73
[2024-09-20 16:50] VITALS: BP 135/76
[2024-09-20 17:20] VITALS: BP 131/73
== END 2024-09-20 17:52 | disposition home or self-care (01) ==
LOC: GI 06:15
PROVIDERS: ATTENDING PHYSICIAN Internal Medicine Gastroenterology
DX: R93.3 Abnormal findings on diagnostic imaging of other parts of digestive tract (principal); K80.20 Calculus of gallbladder without cholecystitis without obstruction; K82.3 Fistula of gallbladder; K57.10 Diverticulosis of small intestine without perforation or abscess without bleeding; K31.89 Other diseases of stomach and duodenum; K83.8 Other specified diseases of biliary tract; R93.5 Abnormal findings on diagnostic imaging of other abdominal regions, including retroperitoneum
CPT/HCPCS: 43237; 43239; 88305; 74330; 76000